=== PATIENT | female | born 1995 | race African-American/Black ===

== ENCOUNTER 2025-03-28 23:04 | Emergency (ER) | payer MEDICARE, SELFPAY ==
[2025-03-28 23:09] LABS: Glucose - Point of Care 113 mg/dl (70-99)
[2025-03-28 23:18] VITALS: BMI 18.1
[2025-03-28 23:19] VITALS: BP 147/86
[2025-03-28 23:39] LABS: % Basophils 0.4 % (0-2); % Immature Granulocytes 0.2 % (0-0.5); % Lymphocytes 31.2 % (20.5-51.1); % Monocytes 12.3 % (1.7-9.3); % Neutrophils 54.9 % (42.2-75.2); Absolute Eosinophils 0.1 10^3/uL (0-0.7); Absolute Lymphocytes 1.6 10^3/uL (1.2-3.4); Absolute Monocytes 0.6 10^3/uL (0.1-0.6); Absolute Neutrophils 2.7 10^3/uL (1.4-6.5); Hematocrit 27.6 % (37.0-47.0); Hemoglobin 8.4 g/dL (12.0-16.0); Mean Corp Hgb Conc. 30.4 g/dL (33.0-37.0); Mean Corpuscular Volume 72.4 fL (81.0-99.0); Mean Platelet Volume 8.5 fL (7.4-10.4); Nucleated Red Blood Cells % 0 %; Platelet Count 438 10^3/uL (130-400); Red Blood Cell Count 3.81 10^6/uL (4.20-5.40); Red Cell Dist. Width 17.4 % (11.5-14.5)
[2025-03-28 23:50] LABS: HCG, Serum Qualitative Screen Negative
[2025-03-28 23:54] LABS: ALT (SGPT) 13 U/L (0-35); AST (SGOT) 21 U/L (14-36); Albumin 4.2 g/dl (3.5-5.0); Alkaline Phosphatase 66 U/L (38-126); Blood Urea Nitrogen 9 mg/dl (7-17); Calcium 9.2 mg/dl (8.4-10.2); Carbon Dioxide 23 mmol/L (22-30); Chloride 110 mmol/L (98-107); Estimated Creatinine Clearance 87 ml/min; Glucose 104 mg/dl (70-99); Potassium 3.8 mmol/L (3.5-5.1); Sodium 138 mmol/L (135-145); Total Bilirubin 0.3 mg/dl (0.2-1.3); Total Protein 7.6 g/dl (6.3-8.2); eGFR > 60.00
[2025-03-29] VITALS (7 sets, daily range): BP systolic 117–156; BP diastolic 70–101; PULSE 107–110
--- NOTE | 2025-03-29 00:34 | ED.GENMED ---
History of Present Illness
General
Chief Complaint: Fainting Sensation
Source: patient
Exam Limitations: none
Time Seen by Provider: 03/28/25 23:05
Nursing documentation reviewed up to this point in time: agreed with
History of Present Illness
History of Present Illness:
29-year-old female past medical history of anxiety schizophrenia presenting to the emergency department today with concerns of feeling jittery like she could pass out also claims she has had some degree of symptoms after stopping Zoloft 1 month ago
after moving from [place]. She does plan to move back to [place] soon. Denies any additional symptoms otherwise specifically.
Review of Systems
Review of Systems
Allergies reviewed?: Yes
All Other Systems: ROS reviewed and negative except as documented in HPI and ROS
Phy Exam
Physical Exam
Physical Exam:
GENERAL: Alert , in no apparent distress
EYE: pupils equal and reactive
NECK: Supple, no significant adenopathy.
ENT: o/p clr, mmm.
CARDIAC: Regular rate and rhythm .
LUNGS: Clear breath sounds bilaterally, no acute respiratory distress, no wheezes/rales/rhonchi
ABDOMEN: Soft, without focal tenderness, no r/g, no cvat
NEUROLOGICAL: Alert and oriented, no focal neuro deficits
SKIN: Warm and dry, skin intact.
MUSCULOSKELETAL: No edema, well perfused.
PSYCH: Normal and appropriate interaction.
Course
Orders/Labs/Results
Orders:
Orders
03/28/25 23:25
EKG [Electrocardiogram (*1)] Urgent
Reason for Study: Fatigue / Weakness
EKG- Treatment ONCE
Urinalysis Reflex To Culture Urgent
Date Specimen was Collected: 03/29/25
Time Specimen was Collected: 02:13
Test Result ONCE
03/28/25 23:28
CBC/With Diff [Complete Blood Count/With Diff] Urgent
CMP [Comprehensive Metabolic Panel] Urgent
HCG, Serum Qualitative Screen Urgent
03/29/25 00:26
Orthostatic VS- Treatment ONCE
03/29/25 02:15
Urine Microscopic Reflex Cult Urgent
Abnormal Lab Results
03/28/25 03/28/25 03/29/25
23:08 23:28 02:15
RBC 3.81 L 10^6/uL
(4.20-5.40)
Hgb 8.4 L g/dL
(12.0-16.0)
Hct 27.6 L %
(37.0-47.0)
MCV 72.4 L fL
(81.0-99.0)
MCH 22.0 L pg
(27.0-31.0)
MCHC 30.4 L g/dL
(33.0-37.0)
RDW 17.4 H %
(11.5-14.5)
Plt Count 438 H 10^3/uL
(130-400)
Monocytes % 12.3 H %
(1.7-9.3)
Chloride 110 H mmol/L
(98-107)
Glucose 104 H mg/dl
(70-99)
Urine Ketones 1+ A
(Negative)
Urine Bacteria (Reflex) Few A
(Negative)
Urine Albumin (Reflex) 1+ A
(Neg - Trace)
POC Glucose 113 H mg/dl
(70-99)
03/28/25 23:28
03/28/25 23:28
Vital Signs
Initial and Last Documented VS:
Initial Vital Signs
Temp Pulse Ox
97.7 F 100
03/28/25 23:07 03/28/25 23:07
Last Documented Vital Signs
Temp Pulse Resp BP Pulse Ox
97.7 F 75 17 117/75 100
03/28/25 23:07 03/29/25 02:41 03/29/25 02:41 03/29/25 03:00 03/29/25 03:00
MDM/Problems Addressed
MDM/Problems Addressed:
29-year-old female presenting to the emergency department today with concerns of feeling jittery seem to start over the last month after stopping Zoloft. Denies any chest pain shortness of breath nausea vomiting. Did feel an episode of
lightheadedness earlier today. On arrival was mildly tachycardic that improved during my assessed when her heart rate was in the 90s. Otherwise vital signs normal. Hemoglobin 8.4 she is unsure of any history of anemia. Denies any heavy menstrual
cycles denies any bleeding or changes in bowel movements. Other labs unremarkable. Normal physical examination. Advised for close outpatient follow-up return precautions given.
*Critical Care Note
Total Time (30-74mins, 75-104mins- exclusive of procedures): Not Applicable
ED Attending Note
-
Portions of this chart may have been created with voice recognition software.� Occasional wrong word or��sound alike� substitutions may have occurred due to the inherent limitations of voice recognition software.
Discharge Plan
Departure
Patient Disposition: Home (Routine Discharge)
Date of Disposition: 03/29/25
Time of Disposition: 03:11
Patient with high blood pressure during this ER visit?: No
Condition: Good
Covid-19: Not Applicable
Discharge Problem:
Anemia
Instructions: Anemia overview
Prescriptions:
New
ferrous sulfate 325 mg (65 mg iron) tablet
325 mg PO BID 14 Days Qty: 28 0RF
Referrals:
Pedrito Molina MD [Active] - Follow up in 5-7 days
Jerardo Lopez MD [Active] -
NONE,* [Family Provider] -
Activity Restrictions/Additional Instructions:
You came to the emergency department today with concerns of vague symptoms. Here you are found to be anemic likely iron deficiency. Please take the prescribed iron supplementation and follow-up closely with the primary care doctor for further
management and assessment. Return for any worsening, new or concerning symptoms.
Interventions
Interventions:
*Risk Screen - Suicide Last Done: 03/28/25 23:07
*General Assessment Last Done: 03/28/25 23:07
*Neglect/Abuse Screening Last Done: 03/28/25 23:07
*ED- Fall Risk Assessment Last Done: 03/28/25 23:07
*ED COVID-19 Vaccine History Last Done: 03/28/25 23:07
ED- Cardiac Assessment Last Done: 03/28/25 23:07
ED- Neurological Assessment Last Done: 03/28/25 23:07
Discharge Date and Time
Print Language: ITALIAN
[2025-03-29 02:49] LABS: Urine Albumin 1+ (Neg - Trace); Urine Bilirubin Negative (Negative); Urine Character Cloudy (Clear); Urine Color Amber; Urine Glucose Negative (Negative); Urine Ketone 1+ (Negative); Urine Leukocyte Negative (Negative); Urine Nitrite Negative (Negative); Urine Occult Blood Negative (Negative); Urine Specific Gravity 1.025 (<1.030); Urine Urobilinogen 1+ (Neg - 1+)
[2025-03-29 02:57] LABS: Urine Squamous Cell >30 /LPF (Few)
[2025-03-29 02:59] LABS: Urine Bacteria Few (Negative); Urine Red Blood Cell 0-2 /HPF (0-2); Urine White Cell 0-2 /HPF (0-5)
== END 2025-03-29 03:38 | disposition home or self-care (01) ==
LOC: EMR 23:04
PROVIDERS: Physician Assistant; EMERGENCY PHYSICIAN Emergency Medicine
DX: R55 Syncope and collapse (principal); D64.9 Anemia, unspecified; R30.0 Dysuria; F20.9 Schizophrenia, unspecified; F41.9 Anxiety disorder, unspecified; F17.200 Nicotine dependence, unspecified, uncomplicated; Z91.040 Latex allergy status; Z91.048 Other nonmedicinal substance allergy status
CPT/HCPCS: 99283; 80053; 81003; 81015; 82962; 84703; 85025; 93005

== ENCOUNTER 2025-03-29 21:52 | Emergency (ER) | payer MEDICARE, SELFPAY ==
[2025-03-29 22:00] VITALS: BP 116/79
--- NOTE | 2025-03-29 23:42 | ED.GENMED ---
History of Present Illness
General
Chief Complaint: Anxiety
Source: patient
Exam Limitations: none
Time Seen by Provider: 03/29/25 22:50
Nursing documentation reviewed up to this point in time: agreed with
History of Present Illness
History of Present Illness:
Patient to ED with complaint of feeling jittery She was transported to ED by police. She reports that she got off the wrong bus. States she was [place]. She admits to psychiatric issues in the past but states she is
not currently taking any medicatons. SHe does not have providers in this area.
Past History
Past History
ED Past Medical History: Psychiatric (she admits to psychiatric issues but does not know diagnosis)
Review of Systems
Review of Systems
Allergies reviewed?: Yes
All Other Systems: ROS reviewed and negative except as documented in HPI and ROS
Constitutional: Reports no symptoms
EENT: Reports no symptoms
Respiratory: Reports no symptoms
Cardiac: Reports no symptoms
ABD/GI: Reports no symptoms
: Reports no symptoms
Musculoskeletal: Reports no symptoms
Skin: Reports no symptoms
Neurological: Reports no symptoms
Psychiatric: Reports no symptoms
Phy Exam
General Physical Exam
General Presentation: well appearing and no apparent distress
General age: appears stated age
General Skin: warm and dry
General Habitus: normal
Neurological Exam
Neurological Exam: alert, oriented x3, speech normal and normal gait
Musculoskeletal Exam
Musculoskeletal Exam: full ROM
Skin Exam
Skin Exam: normal color
Psychiatric Exam
Psychiatric Exam: normal mood/affect
Course
Orders/Labs/Results
Orders:
Orders
03/29/25 22:55
Crisis Consult Urgent
Reason for Consult: anxiety
Vital Signs
Initial and Last Documented VS:
Initial Vital Signs
Temp Pulse Resp BP Pulse Ox
97.9 F 73 20 116/79 100
03/29/25 22:00 03/29/25 22:00 03/29/25 22:00 03/29/25 22:00 03/29/25 22:00
Last Documented Vital Signs
Temp Pulse Resp BP Pulse Ox
97.9 F 74 16 114/74 99
03/29/25 22:00 03/29/25 23:53 03/29/25 23:53 03/29/25 23:53 03/29/25 23:53
*Critical Care Note
Total Time (30-74mins, 75-104mins- exclusive of procedures): Not Applicable
Update Note
Update Note:
Patient to ED by police with complaint of feeling jittery. SHe was seen in ED last PM for same. Crisis evaluation obtained tonight. they confirm her schizophrenia history and feel that she is safe for discharge and can be managed outpatient. She
was given follow up information by crisis. SHe remains awake and alert, in not distress.
ED Attending Note
-
Portions of this chart may have been created with voice recognition software.� Occasional wrong word or��sound alike� substitutions may have occurred due to the inherent limitations of voice recognition software.
Discharge Plan
Departure
Patient Disposition: Home (Routine Discharge)
Date of Disposition: 03/29/25
Time of Disposition: 23:41
Patient with high blood pressure during this ER visit?: No
Condition: Good
Covid-19: Not Applicable
Discharge Problem:
Psychiatric disturbance
Instructions: Schizophrenia - Discharge instructions
Prescriptions:
No Action
ferrous sulfate 325 mg (65 mg iron) tablet
325 mg PO BID 14 Days Qty: 28 0RF
Referrals:
UNKNOWN - PT DOES,NOT KNOW [Family Provider] -
Activity Restrictions/Additional Instructions:
Follow up as recommended by crisis.
Interventions
Interventions:
*Risk Screen - Suicide Last Done: 03/29/25 22:00
*General Assessment Last Done: 03/29/25 22:00
*Neglect/Abuse Screening Last Done: 03/29/25 22:00
*ED- Fall Risk Assessment Last Done: 03/29/25 22:45
*Nursing Disposition Last Done: 03/29/25 23:53
ED-Psychological Assessment Last Done: 03/29/25 22:45
Discharge Date and Time
Discharge Date/Time: 03/29/25 23:59
Print Language: SLOVENIAN
[2025-03-29 23:53] VITALS: BP 114/74
== END 2025-03-29 23:59 | disposition home or self-care (01) ==
LOC: EMR 21:52
PROVIDERS: EMERGENCY PHYSICIAN Student in an Organized Health Care Education/Training Program
DX: F99 Mental disorder, not otherwise specified (principal)
CPT/HCPCS: 99283

== ENCOUNTER 2025-04-04 11:22 | Emergency (ER) | payer MEDICARE, SELFPAY ==
[2025-04-04 11:28] VITALS: BP 122/71
--- NOTE | 2025-04-04 15:54 | DOWNTIME ---
There was a [employer] [facility] Downtime on 04/04/2025 from 1230 to 04/04/2025 at 1550. Downtime documentation of patient's care, including medication administrations, has been reconciled in the electronic record per guidelines. Refer to the
patient's paper chart under the miscellaneous tab to see printed paper medication records and downtime forms.
--- NOTE | 2025-04-04 16:06 | ED.GENMED ---
History of Present Illness
General
Chief Complaint: Weakness
Source: patient
Time Seen by Provider: 04/04/25 13:09
History of Present Illness
History of Present Illness:
29-year-old female presents to the emergency room complaining of feeling nauseous, generally weak. She is afraid she is dehydrated. She also feels like someone stalking her and she does not feel safe. Patient admits being homeless. She has been
here 2 other times in the past week.
Past History
Past History
ED Past Medical History: Psychiatric (she admits to psychiatric issues but does not know diagnosis)
Phy Exam
Physical Exam
Physical Exam:
General: Awake, Alert, Oriented X3. No acute distress.
Vitals: unremarkable
Head: Atraumatic
Eyes: Pupils equal, EOMI
Throat: Airway intact, no exudates
Neck: Trachea midline
Lungs: Clear and equal b/l
Heart: Regular rate, no murmurs
Abd: Soft, Nontender, No pulsatile mass
Neuro: Cranial nerves intact, muscle strength equal bilaterally, cerebellar exam normal
Skin: Warm, dry, no rash
Extremities: pulses equal b/l, no edema
Course
Orders/Labs/Results
Orders:
Orders
04/04/25 12:28
Crisis Consult Urgent
Reason for Consult: paranoia
Vital Signs
Initial and Last Documented VS:
Initial Vital Signs
Temp Pulse Resp BP Pulse Ox
98.2 F 79 16 122/71 96
04/04/25 11:28 04/04/25 11:28 04/04/25 11:28 04/04/25 11:04/04/25 11:28
Last Documented Vital Signs
Temp Pulse Resp BP Pulse Ox
98.2 F 79 16 122/71 96
04/04/25 11:28 04/04/25 11:28 04/04/25 11:28 04/04/25 11:28 04/04/25 11:28
MDM/Problems Addressed
Differential Diagnosis Includes:
Schizophrenia, depression symptomatic anemia
MDM/Problems Addressed:
Patient presents with feeling tired, dehydrated. Clinically she looks quite stable. She had labs performed 1 week ago which did show that she is anemic. She is recommended to take iron. She has not had any bleeding since being evaluated last
week. Patient provided with amarilys matt here which she consumed without difficulty. final assembly worker spoke with patient who refused services at this time. There is no evidence for an unstable process necessitating further testing or hospitalization.
Patient stable for discharge.
Chronic conditions affecting care: Psychiatric illness
*Pulse Oximetry
Patient hypoxic: no
*Critical Care Note
Total Time (30-74mins, 75-104mins- exclusive of procedures): Not Applicable
ED Attending Note
-
Portions of this chart may have been created with voice recognition software.� Occasional wrong word or��sound alike� substitutions may have occurred due to the inherent limitations of voice recognition software.
Discharge Plan
Departure
Patient Disposition: Home (Routine Discharge)
Date of Disposition: 04/04/25
Time of Disposition: 16:09
Patient with high blood pressure during this ER visit?: No
Condition: Good
Discharge Problem:
Anemia
Prescriptions:
No Action
ferrous sulfate 325 mg (65 mg iron) tablet
325 mg PO BID 14 Days Qty: 28 0RF
Activity Restrictions/Additional Instructions:
Downtime instructions provided to the patient.
Interventions
Interventions:
*Risk Screen - Suicide Last Done: 04/04/25 11:30
*General Assessment Last Done: 04/04/25 15:55
*Neglect/Abuse Screening Last Done: 04/04/25 11:30
*ED- Fall Risk Assessment Last Done: 04/04/25 15:55
*ED COVID-19 Vaccine History Last Done: 04/04/25 15:55
*Nursing Disposition Last Done: 04/04/25 15:55
ED- Cardiac Assessment Last Done: 04/04/25 15:59
ED- Neurological Assessment Last Done: 04/04/25 15:59
ED- Pulmonary Assessment Last Done: 04/04/25 15:59
Discharge Date and Time
Print Language: CROATIAN
== END 2025-04-04 15:59 | disposition home or self-care (01) ==
LOC: EMR 11:22
PROVIDERS: EMERGENCY PHYSICIAN Emergency Medicine
DX: R53.1 Weakness (principal); R11.0 Nausea; E86.0 Dehydration; Z59.00 Homelessness unspecified; D64.9 Anemia, unspecified
CPT/HCPCS: 99282